=== PATIENT | female | born 1970 | race Caucasian/White ===

== ENCOUNTER 2020-11-24 09:12 | Emergency (ER) | payer OTHER, SELFPAY ==
[2020-11-24 09:23] VITALS: BP 137/74; PULSE 86; RESP 16; TEMP 36.7; O2SAT 96
--- NOTE | 2020-11-24 09:37 | ED.URI ---
HPI - URI/Sore Throat General Chief Complaint: Upper Respiratory Infection Stated Complaint: COUGH/SORE THROAT Time Seen by Provider: 11/24/20 09:51 Source: patient Mode of arrival: ambulatory Limitations: no limitations History of Present Illness HPI Narrative: Hortensia Cavanaugh is a 50 yo female with HTN, hypothyroid, high cholesterol, [facility] with complaints of upper respiratory symptoms that started yesterday. She feels like she is losing her voice and has a lot of sinus congestion no fever but just feels generally tired and rundown. Denies any shortness of breath Patient is in AA and quit drinking 4 years ago and quit smoking 4 years ago, has not developed any COPD Related Data Home Medications Medication Instructions Recorded Confirmed ergocalciferol (vitamin D2) 11/24/20 levothyroxine 11/24/20 lisinopril 11/24/20 meloxicam 11/24/20 tramadol mg 11/24/20 Allergies Allergy/AdvReac Type Severity Reaction Status Date / Time No Known Allergies Allergy Unverified 08/12/18 08:05 Review of Systems Review of Systems: Narrative: CONSTITUTIONAL: Denies fever, chills, sweats. EYES: Denies visual changes, redness, discharge. ENT:has rhinorrhea, has congestion, has sore throat, otalgia. CARDIOVASCULAR: Denies chest pain, palpitations, edema. RESPIRATORY: Denies dyspnea, wheezing, dry cough GASTROINTESTINAL: Denies abdominal pain, nausea, vomiting, diarrhea. GENITOURINARY: Denies dysuria, hematuria, abnormal discharge SKIN: Denies rash or itching. NEUROLOGIC: Denies numbness, or focal weakness. PSYCHIATRIC: Denies anxiety or depression. [facility] Past Medical History Medical History High cholesterol HTN (hypertension) Hypothyroid Family History Family History Other Diabetes mellitus Heart disease Hypertension Social History Social History Smoking packs per day: 1 Smoking cigarettes per day: 20.0 Smoking status: Former smoker Alcohol intake: former Alcohol use details: Stop drinking 4 years ago Comments At time of signature, I agree with nursing past medical, surgical, social and family history. There is no relevant family history pertinent to the presenting complaint. Exam Narrative: Exam Narrative: GENERAL: This is a well-nourished, well-developed patient, in mild distress. HEAD: normocephalic, atraumatic. EYES: Sclera clear/white. Vision is grossly intact. EARS: External ears normal, auditory canals cerythema and without drainage, TMs normal without perforation. Hearing grossly intact. NOSE: External nose normal without nasal discharge, nares with redness, mild rhinorrhea. THROAT: Mucous membranes moist, posterior pharynx erythema, no exudate NECK: Neck supple, non-tender CARDIOVASCULAR: Regular rate and rhythm without murmurs, gallops, or rubs. RESPIRATORY: Clear to auscultation. Breath sounds equal bilaterally. No wheezes, rales, or rhonchi. GASTROINTESTINAL: Abdomen soft, non-tender, SKIN: warm, intact with no suspicious lesions or rash, good texture and turgor. NEURO: awake, alert, and oriented to person, place and time. There were no obvious focal neurologic abnormalities. Steady gait EXTREMITIES: Normal range of motion. BACK: Nontender without deformity Course Course Emergency Course: Hortensia Edmondson is a 50-year-old patient with upper respiratory symptoms that started yesterday including a sore throat hoarseness congestion cough Strep test negative Covid test negative (she did finish Covid series) Flu test negative Started on prednisone, Robitussin, albuterol inhaler, Zyrtec Work excuse for 2 days Vital Signs Vital signs: Vital Signs Temperature 98.1 F 11/24/20 09:23 Pulse Rate 86 11/24/20 09:23 Respiratory Rate 16 11/24/20 09:23 Blood Pressure 137/74 11/24/20 09:23 Pu
--- NOTE | 2020-11-24 10:16 | PC.NURSE ---
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
== END 2020-11-24 10:36 | disposition home or self-care (01) ==
PROVIDERS: Emergency Provider Nurse Practitioner
DX: J06.9 Acute upper respiratory infection, unspecified (principal); Z20.822 Contact with and (suspected) exposure to COVID-19; I10 Essential (primary) hypertension; E03.9 Hypothyroidism, unspecified; E78.00 Pure hypercholesterolemia, unspecified; Z87.891 Personal history of nicotine dependence
CPT/HCPCS: 87426; 87804; 87880; 99213; C9803; G0463

== ENCOUNTER 2021-01-10 14:20 | Outpatient (CLI) | payer OTHER, SELFPAY ==
--- NOTE | ~2021-01-10 | MM_ITS ---
EXAMINATION: MM screening [facility] BI w derek HISTORY: Screening mammogram TECHNIQUE: Craniocaudal and mediolateral oblique 3-D tomosynthesis images were obtained and synthetic 2-D images were generated. CAD analysis was submitted and interpreted. COMPARISON: 05/19/2019, 03/25/2018, 03/01/2017 BREAST PARENCHYMAL COMPOSITION: The breasts are almost entirely fatty. FINDINGS: There is no evidence of suspicious mass, calcification, or architectural distortion to sugg est malignancy in either breast. There has been no suspicious interval change. IMPRESSION: 1. No mammographic evidence of malignancy. 2. Recommend routine screening mammography in one year. BI-RADS Category 1: Negative Reviewed, dictated and finalized at location A.
== END 2021-01-10 14:21 | disposition home or self-care (01) ==
LOC: ANHIMG 14:24
PROVIDERS: PCP Family Medicine; Visit Provider Family Medicine
DX: Z12.31 Encounter for screening mammogram for malignant neoplasm of breast (principal)
CPT/HCPCS: 77063; 77067

== ENCOUNTER 2021-04-20 12:13 | Emergency (ER) | payer OTHER, SELFPAY ==
[2021-04-20 12:23] VITALS: BP 138/76; PULSE 88; RESP 16; TEMP 37.1; O2SAT 97
--- NOTE | 2021-04-20 12:23 | ED.URI ---
HPI - URI/Sore Throat General Chief Complaint: Upper Respiratory Infection Stated Complaint: Congestion,Cough Time Seen by Provider: 04/20/21 12:38 Source: patient and RN notes reviewed Mode of arrival: ambulatory Limitations: no limitations History of Present Illness HPI Narrative: 50-year-old female with history of high cholesterol and hypertension presents with concern for rhinorrhea, nasal congestion, occasional cough, occasional sore throat. Reports symptoms started Friday. Reports she is taking Benadryl with little relief. She denies body aches, chills, sweats, fever. Reports she has been vaccinated for Covid. Denies known sick contacts. MD elicited complaint: nasal congestion Related Data Home Medications Medication Instructions Recorded Confirmed ergocalciferol (vitamin D2) 1,250 mcg PO DAILY 11/24/20 04/20/21 levothyroxine 50 mcg PO DAILY 11/24/20 04/20/21 lisinopril 40 mg PO DAILY 11/24/20 04/20/21 meloxicam 15 mg PO DAILY 11/24/20 04/20/21 tramadol 50 mg PO DIRECTED 11/24/20 04/20/21 Allergies Allergy/AdvReac Type Severity Reaction Status Date / Time No Known Allergies Allergy Unverified 04/20/21 12:25 Review of Systems Review of Systems: CONSTITUTIONAL: Denies malaise, chills, sweats, or fever. EYES: Denies visual changes, redness, or discharge. ENT: Reports rhinorrhea, congestion, intermittent sore throat. Denies sinus pain, otalgia CARDIOVASCULAR: Denies chest pain, palpitations, or edema. RESPIRATORY: Reports occasional cough. Denies dyspnea. GASTROINTESTINAL: Denies abdominal pain, nausea, vomiting, diarrhea SKIN: Denies rash or itching. MUSCULOSKELETAL: Denies myalgia. NEUROLOGIC: Denies headache. All systems reviewed & are unremarkable except as noted in HPI and below PMFSH Past Medical History Medical History High cholesterol HTN (hypertension) Hypothyroid Family History Family History Other Diabetes mellitus Heart disease Hypertension Social History Social History Smoking packs per day: 1 Smoking cigarettes per day: 20.0 Smoking status: Former smoker Alcohol intake: former Alcohol use details: Stop drinking 4 years ago Comments At time of signature, agree with nursing past medical, surgical, social and family history. There is no relevant family history pertinent to the presenting complaint Exam Narrative: GENERAL: Well-appearing, well-nourished, and in no acute distress. HEAD: Normocephalic EYES: PERRLA, conjunctivae clear ENT: Nares clear, turbinates erythematous, clear discharge. Mucous membranes moist. TM pearly rosas with dull light reflex bilaterally; no tragal tenderness. Oropharynx not erythematous without lesions. Tonsils not enlarged and without exudate, no drooling, no hoarseness, no trismus, uvula midline. NECK: Supple. No lymphadenopathy CHEST: Clear to auscultation, breath sounds equal. No wheezing, rhonchi, rales, or stridor. No respiratory distress, speaks in full sentences. HEART: Regular rate and rhythm. No murmur heard. SKIN: Warm, dry, no rash. NEURO: Alert and oriented x3. PSYCH: Normal mood and affect Course Course Emergency Course: Patient is aware of diagnosis, understands and agrees to treatment plan. Anticipatory guidance given. Patient agrees to follow-up as directed and is aware of reasons to seek care at the emergency department. Portions of this record may have been created with voice recognition software Vital Signs Vital signs: Reviewed. MDM - URI/Sore Throat MDM Narrative Medical decision making narrative: Differential diagnosis considered: Clarke virus, strep pharyngitis, allergic rhinitis, upper respiratory tract infection, sinusitis, rhinosinusitis, nasopharyngitis. viral pharyngitis, otitis media, otitis externa, pneumonia, bronchitis, viral cough syndrome
== END 2021-04-20 12:51 | disposition home or self-care (01) ==
PROVIDERS: Emergency Provider Nurse Practitioner; PCP Family Medicine
DX: J06.9 Acute upper respiratory infection, unspecified (principal); Z87.891 Personal history of nicotine dependence; E78.00 Pure hypercholesterolemia, unspecified; I10 Essential (primary) hypertension; E03.9 Hypothyroidism, unspecified
CPT/HCPCS: 99213; G0463

== ENCOUNTER 2021-11-10 08:10 | Emergency (ER) | payer OTHER, SELFPAY ==
[2021-11-10 08:21] VITALS: BP 141/91; PULSE 77; RESP 18; TEMP 36.4; O2SAT 100
--- NOTE | 2021-11-10 08:26 | ED.URI ---
HPI - URI/Sore Throat General Chief Complaint: Upper Respiratory Infection Stated Complaint: Sore Throat Time Seen by Provider: 11/10/21 08:26 Source: patient Mode of arrival: ambulatory Limitations: no limitations History of Present Illness HPI Narrative: 51-year-old female presents with complaint of nasal congestion, postnasal drainage, sore throat, dry hacking cough for 3 days. Denies chest pain shortness of breath. No fever chills. States that she has been working outside in the yard. Thought that it was may be allergies but seems like drainage and cough is getting worse. Now having hoarse voice. Did start Claritin yesterday but not taking any other medications to treat symptoms. All systems reviewed and negative except as noted above. Related Data Home Medications Medication Instructions Recorded Confirmed ergocalciferol (vitamin D2) 1,250 mcg PO DAILY 11/24/20 11/10/21 levothyroxine 50 mcg PO DAILY 11/24/20 11/10/21 lisinopril 40 mg PO DAILY 11/24/20 11/10/21 Allergies Allergy/AdvReac Type Severity Reaction Status Date / Time No Known Allergies Allergy Unverified 04/20/21 12:25 Review of Systems Review of Systems: CONSTITUTIONAL: Denies fever, chills, or sweats. EYES: Denies visual changes, redness, or discharge. ENT: Reports rhinorrhea, congestion, sore throat. Denies otalgia. CARDIOVASCULAR: Denies chest pain, palpitations, or edema. RESPIRATORY: Reports cough. Denies dyspnea. GASTROINTESTINAL: Denies abdominal pain, nausea, vomiting, or diarrhea. GENITOURINARY: Denies dysuria or hematuria. SKIN: Denies rash or itching. MUSCULOSKELETAL: Denies back pain, joint pain, or myalgia. NEUROLOGIC: Denies headache, numbness, or weakness. PSYCHIATRIC: Denies anxiety or depression. All other systems reviewed are negative, except as documented in HPI. [facility] Past Medical History Medical History High cholesterol HTN (hypertension) Hypothyroid Family History Family History Other Diabetes mellitus Heart disease Hypertension Social History Social History Smoking packs per day: 1 Smoking cigarettes per day: 20.0 Smoking status: Former smoker Alcohol intake: former Alcohol use details: Stop drinking 4 years ago Comments At time of signature, agree with nursing past medical, surgical, social and family history. There is no relevant family history pertinent to the presenting complaint. Exam Narrative: GENERAL: This is a well-nourished, well-developed patient, in no apparent distress. HEAD: normocephalic, atraumatic. EYES: PERRL. Sclera clear/white. Vision is grossly intact. EARS: External ears normal, auditory canals clear and without drainage, TMs normal without perforation. Hearing grossly intact. NOSE: External nose normal with clear nasal drainage, erythema to nares. THROAT: Mucous membranes moist, mild erythema to posterior pharynx with clear nasal drainage. NECK: Neck supple, non-tender without lymphadenopathy, masses or thyromegaly. CARDIOVASCULAR: Regular rate and rhythm without murmurs, gallops, or rubs. RESPIRATORY: Clear to auscultation. Breath sounds equal bilaterally. No wheezes, rales, or rhonchi. SKIN: warm, Dry, intact with no suspicious lesions or rash, good texture and turgor. NEURO: awake, alert, and oriented to person, place and time. There were no obvious focal neurologic abnormalities. EXTREMITIES: Normal range of motion to all extremities. Course Course Level of Care: Express Care Visit Vital Signs Vital signs: Vital Signs Temperature 36.4 C 11/10/21 08:21 Pulse Rate 77 11/10/21 08:21 Respiratory Rate 18 11/10/21 08:21 Blood Pressure 141/91 H 11/10/21 08:21 Pulse Oximetry 100 11/10/21 08:21 Temperature 36.4 C 11/10/21 08:21 Pulse Rate 77 11/10/21 08:21 Respiratory Rate
== END 2021-11-10 08:51 | disposition home or self-care (01) ==
PROVIDERS: Emergency Provider Nurse Practitioner Family
DX: J01.90 Acute sinusitis, unspecified (principal); E78.00 Pure hypercholesterolemia, unspecified; I10 Essential (primary) hypertension; E03.9 Hypothyroidism, unspecified; Z87.891 Personal history of nicotine dependence
CPT/HCPCS: 87081; 87880; 99213; G0463

== ENCOUNTER 2022-09-24 09:00 | Emergency (ER) | payer OTHER, SELFPAY ==
[2022-09-24 09:09] VITALS: BP 136/71; PULSE 93; RESP 16; TEMP 36.3; O2SAT 100
--- NOTE | 2022-09-24 09:54 | ED.GENADULT ---
HPI - General Adult General Chief complaint: Upper Respiratory Infection Stated complaint: Throat/Nose/Ears Source: patient Mode of arrival: ambulatory Limitations: no limitations History of Present Illness HPI narrative: Patient presents for evaluation of sick symptoms for the last 24 hours. Symptoms include sinus congestion, clear rhinorrhea, sore throat. No fever, chills, nausea, vomiting, diarrhea, cough, shortness of breath. Her daughter had a sore throat recently. She smokes 1/2 ppd. She has taken zyrtec for her symptoms. No additional complaints or concerns. Related Data Home Medications Medication Instructions Recorded Confirmed ergocalciferol (vitamin D2) 1,250 1,250 mcg PO DAILY 11/24/20 09/24/22 mcg (50,000 unit) capsule levothyroxine 50 mcg tablet 50 mcg PO DAILY 11/24/20 09/24/22 lisinopril 40 mg tablet 40 mg PO DAILY 11/24/20 09/24/22 multivitamin 1 tablet PO DAILY 09/24/22 09/24/22 Allergies Allergy/AdvReac Type Severity Reaction Status Date / Time No Known Allergies Allergy Verified 09/24/22 09:21 Review of Systems Review of Systems: CONSTITUTIONAL: Reports fever and chills. EYES: Denies visual changes, redness, or discharge. ENT: Reports sinus congestion, clear rhinorrhea, sore throat. Denies otalgia. CARDIOVASCULAR: Denies chest pain, palpitations, or edema. RESPIRATORY: Denies cough or dyspnea. GASTROINTESTINAL: Denies abdominal pain, nausea, vomiting, or diarrhea. GENITOURINARY: Denies dysuria or hematuria. SKIN: Denies rash or itching. MUSCULOSKELETAL: Denies back pain, joint pain, or myalgia. NEUROLOGIC: Denies headache, numbness, dizziness, or weakness. PSYCHIATRIC: Denies anxiety or depression. [facility] Past Medical History Medical History High cholesterol HTN (hypertension) Hypothyroid Surgical History Surgical History History of Family History Family History Mother Family history non-contributory Other Diabetes mellitus Heart disease Hypertension Social History Social History Smoking packs per day: 0.5 Smoking cigarettes per day: 10.0 Smoking status: Current every day smoker Alcohol intake: former Alcohol use details: Stop drinking 4 years ago Substance use: never Living arrangements: with family Spiritual care concerns: No Exam Narrative: GENERAL: Well-appearing, well-nourished, and in no acute distress. HEAD: Normocephalic, atraumatic. EYES: PERRLA and EOMI. ENT: Nares clear, no rhinorrhea or epistaxis. Mucous membranes moist. Posterior pharyngeal erythema without exudate. Uvula is midline. Bilateral TMs pearly rosas nonbulging NECK: Supple. No adenopathy or masses. No carotid bruits or JVD CHEST: Clear to auscultation. No respiratory distress. No wheezes rales or rhonchi HEART: Regular rate and rhythm. No murmur heard. Normal peripheral pulses. ABDOMEN: Soft, nontender, nondistended, normal active bowel sounds. EXTREMITIES: Normal range of motion. No edema. SKIN: Warm, dry, no rash. NEURO: No focal deficits. Alert and oriented x3. PSYCH: Normal mood and affect. Course Course Emergency Course: This is a 52-year-old female who presented for evaluation of sick symptoms. Rapid strep positive. Will treat with amoxicillin. Follow up with primary provider. Go to the ER for worsening symptoms. Patient in agreement with plan of care. Level of Care: Express Care Visit Vital Signs Vital signs: Vital Signs Temperature 36.3 C L 09/24/22 09:09 Pulse Rate 93 09/24/22 09:09 Respiratory Rate 16 09/24/22 09:09 Blood Pressure 136/71 09/24/22 09:09 Pulse Oximetry 100 09/24/22 09:09 Oxygen Delivery Room Air 09/24/22 09:09 Temperature 36.3 C L 09/24/22 09:09 Puls
== END 2022-09-24 10:22 | disposition home or self-care (01) ==
PROVIDERS: Emergency Provider Nurse Practitioner; PCP Physician Assistant
DX: J02.0 Streptococcal pharyngitis (principal); I10 Essential (primary) hypertension; E03.9 Hypothyroidism, unspecified; F17.210 Nicotine dependence, cigarettes, uncomplicated
CPT/HCPCS: 87880; 99213; G0463

== ENCOUNTER 2023-01-12 08:00 | Emergency (ER) | payer OTHER, SELFPAY ==
--- NOTE | 2023-01-12 08:04 | ED.URI ---
HPI - URI/Sore Throat General Chief Complaint: Upper Respiratory Infection Stated Complaint: ear, nose,throat prob Time Seen by Provider: 01/12/23 08:08 Source: patient, RN notes reviewed and old records reviewed Mode of arrival: ambulatory Limitations: no limitations History of Present Illness HPI Narrative: 52-year-old female presents to the [facility] with complaints of a sore throat, ear pressure and stuffy nose that started either yesterday morning or late Friday night. Has taken DayQuil 1 time Denies fevers, chest pain, shortness of breath. Denies abdominal pain. States that she just got back from [place] [facility] the [facility] and started symptoms. History of type 2 diabetes, high cholesterol, thyroid disease and hypertension Onset (ago): day(s) (1) Severity: mild Related Data Home Medications Medication Instructions Recorded Confirmed ergocalciferol (vitamin D2) 1,250 1,250 mcg PO DAILY 11/24/20 01/12/23 mcg (50,000 unit) capsule levothyroxine 50 mcg tablet 50 mcg PO DAILY 11/24/20 01/12/23 lisinopril 40 mg tablet 40 mg PO DAILY 11/24/20 01/12/23 multivitamin 1 tablet PO DAILY 09/24/22 01/12/23 atorvastatin 20 mg tablet 20 mg PO HS 01/12/23 01/12/23 empagliflozin 25 mg tablet 25 mg PO DAILY 01/12/23 01/12/23 (Jardiance) Allergies Allergy/AdvReac Type Severity Reaction Status Date / Time No Known Allergies Allergy Verified 01/12/23 08:10 Review of Systems Review of Systems: All systems reviewed & are unremarkable except as noted in HPI and below Constitutional: Constitutional: Reports no additional constitutional complaints Eyes: Eyes: Reports no additional eye complaints ENT: Reports as per HPI, Reports otalgia, Reports sinus pressure and Reports sore throat Cardiovascular: Cardiovascular: Reports no additional cardiovascular complaints, Denies chest pain and Denies dyspnea Respiratory: Respiratory: Reports no additional respiratory complaints, Denies chest congestion, Denies cough and Denies dyspnea Gastrointestinal: Gastrointestinal: Reports no additional gastrointestinal complaints, Denies abdominal pain, Denies nausea and Denies vomiting Musculoskeletal: Musculoskeletal: Reports no additional musculoskeletal complaints Integumentary/Breasts: Skin/Breast: Reports system reviewed and no additional complaints, except as docu Neurologic: Reports system reviewed and no additional complaints, except as documented Psychiatric: Psychiatric: Reports no additional psychiatric complaints Allergic/Immunologic: Allergic/Immunologic: Reports no additional allergic/immunologic complaints PMF Past Medical History Medical History High cholesterol HTN (hypertension) Hypothyroid Surgical History Surgical History History of Family History Family History Mother Family history non-contributory Other Diabetes mellitus Heart disease Hypertension Social History Social History Smoking packs per day: 0.5 Smoking cigarettes per day: 10.0 Smoking status: Current every day smoker Alcohol intake: former Alcohol use details: Stop drinking 4 years ago Substance use: never Living arrangements: with family Spiritual care concerns: No Comments At the time of my signature, I reviewed and agree with the nursing past medical, surgical, social, and family history. There is no relevant family history pertinent to the patient complaint. Exam Const: General: cooperative, healthy appearing, comfortable, no acute distress, well developed, alert and well nourished Nutritional Appearance: well nourished and obese Orientation/consciousness: patient oriented x3 Limitations: no limitations HENMT: Head: normal to inspection Ears: hearing grossly normal bilaterally, external
[2023-01-12 08:10] VITALS: BP 142/71; PULSE 79; RESP 16; TEMP 36.4; O2SAT 98
[2023-01-12 08:12] VITALS: BP 142/71; PULSE 79; RESP 16; TEMP 36.4; O2SAT 98
== END 2023-01-12 08:33 | disposition home or self-care (01) ==
PROVIDERS: Emergency Provider Nurse Practitioner; PCP Physician Assistant
DX: J00 Acute nasopharyngitis [common cold] (principal); F17.210 Nicotine dependence, cigarettes, uncomplicated; E78.00 Pure hypercholesterolemia, unspecified; I10 Essential (primary) hypertension; E03.9 Hypothyroidism, unspecified
CPT/HCPCS: 87081; 87880; 99213; G0463

== ENCOUNTER 2023-06-16 08:57 | Outpatient (CLI) | payer OTHER, SELFPAY ==
--- NOTE | ~2023-06-16 | MM_ITS ---
EXAMINATION: MM screening [facility] BI w derek HISTORY: Screening mammogram TECHNIQUE: Craniocaudal and mediolateral oblique 3-D tomosynthesis images were obtained and synthetic 2-D images were generated. CAD analysis was submitted and interpreted. COMPARISON: 01/10/2021, 05/19/2019 bilateral screening mammogram examinations BREAST PARENCHYMAL COMPOSITION: The breasts are almost entirely fatty. FINDINGS: There is no evidence of suspicious mass, calcification, or architectural distortion to sugg est malignancy in either breast. There has been no suspicious interval change. IMPRESSION: 1. No mammographic evidence of malignancy. 2. Recommend routine screening mammography in one year. BI-RADS Category 1: Negative Reviewed, dictated and finalized at location A. [facility]
== END 2023-06-16 08:58 | disposition home or self-care (01) ==
LOC: ANHIMG 08:59
PROVIDERS: PCP Physician Assistant; Visit Provider Physician Assistant
DX: Z12.31 Encounter for screening mammogram for malignant neoplasm of breast (principal)
CPT/HCPCS: 77063; 77067

== ENCOUNTER 2024-11-22 09:13 | Emergency (ER) | payer OTHER, SELFPAY ==
[2024-11-22 09:33] VITALS: BP 112/69; PULSE 86; RESP 20; TEMP 36.2; O2SAT 98
--- NOTE | 2024-11-22 09:49 | ED.EXTPRO ---
HPI - Extremity Problem General Chief complaint: Extremity Problem,Nontraumatic Stated complaint: left thigh swollen Time Seen by Provider: 11/22/24 09:50 Source: patient and RN notes reviewed Mode of arrival: ambulatory Limitations: no limitations History of Present Illness HPI Narrative: 54-year-old female presents concern for left thigh pain. Reports 3 days ago she noticed it was sore and was slightly swollen. She denies any injury. She denies redness, warmth. She reports she took ibuprofen with mild relief. Reports she put topical pain medication with some relief. She denies any history of DVT. She denies any swelling in the knee or lower leg. She denies any trouble breathing. MD Complaint: extremity pain Related Data Home Medications ?Medication ?Instructions ?Recorded ?Confirmed ?Last Taken ?Type ergocalciferol (vitamin D2) 1,250 1,250 mcg PO DAILY 11/24/20 01/12/23 Unknown History mcg (50,000 unit) capsule levothyroxine 50 mcg tablet 50 mcg PO DAILY 11/24/20 01/12/23 Unknown History lisinopril 40 mg tablet 40 mg PO DAILY 11/24/20 01/12/23 Unknown History multivitamin 1 tablet PO DAILY 09/24/22 01/12/23 Unknown History atorvastatin 20 mg tablet 20 mg PO HS 01/12/23 01/12/23 Unknown History empagliflozin 25 mg tablet 25 mg PO DAILY 01/12/23 01/12/23 Unknown History (Jardiance) Allergies Allergy/AdvReac Type Severity Reaction Status Date / Time No Known Allergies Allergy Verified 11/22/24 09:40 Review of Systems Review of Systems: CONSTITUTIONAL: Denies malaise, chills, sweats, or fever. CARDIOVASCULAR: Denies chest pain, palpitations, or edema. RESPIRATORY: Denies cough or dyspnea. SKIN: Denies rash or itching, bruising, redness MUSCULOSKELETAL: Reports left thigh discomfort and swelling NEUROLOGIC: Denies numbness, weakness All systems reviewed & are unremarkable except as noted in HPI and below PMFSH Past Medical History Medical History High cholesterol HTN (hypertension) Hypothyroid Surgical History Surgical History History of Family History Family History Mother Family history non-contributory Other Diabetes mellitus Heart disease Hypertension Social History Social History Smoking packs per day: 0.5 Smoking cigarettes per day: 10.0 Smoking status: Current every day smoker Alcohol intake: former Alcohol use details: Stop drinking 4 years ago Substance use: never Living arrangements: with family Spiritual care concerns: No Comments At time of signature, agree with nursing past medical, surgical, social and family history. There is no relevant family history pertinent to the presenting complaint Exam Narrative: GENERAL: Well-appearing, well-nourished, and in no acute distress. HEAD: Normocephalic, atraumatic. EYES: PERRLA, conjunctivae clear NECK: Supple. CHEST: Speaks in full sentences. No respiratory distress. HEART: Regular rate and rhythm. Normal and equal peripheral pulses. EXTREMITIES: Left lower extremity has normal strength and sensation, normal range of motion. No edema, erythema, induration or ecchymosis noted. Normal sensation with sensitivity to light touch and pain. General upper leg tenderness. No open wounds, no skin tenting, no devitalized tissue or atrophy, no trophic changes, no obvious deformity, alignment normal, nearby joints and structures intact. Distal pulses palpable and equal bilaterally, skin warm, dry, pink. Capillary refill less than 3 seconds. SKIN: Warm, dry, no rash. NEURO: Alert and oriented x3. PSYCH: Normal mood and affect Course Course Emergency Course: Patient is aware of diagnosis, understands and agrees to treatment plan. Anticipatory guidance given. Patient agrees to follow-up as directed and is aware of reasons to seek care at the emergency department. Portions of this record may have been created with voice recognition software Level of Care: Express Care Visit Vital Signs Vital signs: Vital Signs Temperature 97.2 F L 11/22/24 09:33 Pulse Rate 86 11/22/24 09:33 Respiratory Rate 20 11/22/24 09:33 Blood Pressure 112/69 11/22/24 09:33 Pulse Oximetry 98 11/22/24 09:33 Oxygen Delivery Room Air 11/22/24 09:33 Temperature 97.2 F L 11/22/24 09:33 Pulse Rate 86 11/22/24 09:33 Respiratory Rate 20 11/22/24 09:33 Blood Pressure 112/69 11/22/24 09:33 Pulse Oximetry 98 11/22/24 09:33 Oxygen Delivery Room Air 11/22/24 09:33 Reviewed. MDM - Extremity (Nontraumatic) MDM Narrative Medical decision making narrative: [facility]. History is obtained from patient who is an independent historian and physical exam was performed.? Available medical records were reviewed. ? Exam findings show no acute concerns or changes; patient is non-toxic appearing and is in no distress. ? Differential diagnosis and treatment plan were discussed with the patient. Patient agrees with discussion and after shared medical decision making agrees with plan of care. All questions were answered to the patient's satisfaction. Patient is appropriate for outpatient treatment and follow-up. Differential Diagnosis Differential diagnosis: Likely gout, cellulitis, superficial thrombophlebitis and deep vein thrombosis of lower extremity Critical Care Time Critical Care Time Critical Care Time: No Discharge Plan Discharge Clinical Impression: Left thigh pain Patient Disposition: Home Condition: Stable Instructions: General Patient Instructions Additional Instructions: Avoid activities that cause pain until the pain subsides. Ice to the area 20-30 minutes 4-6 times a day Tylenol for lesser pain Ibuprofen regularly for the next 2-3 days for the inflammation Follow up with your primary care provider for further evaluation next 1-2 days If the condition worsens with worsening swelling, numbness, tingling, decrease sensation with weakness seek treatment in the emergency room immediately. Patient Language: [place] Prescriptions: New ibuprofen 800 mg tablet 800 mg PO Q6H PRN (Reason: pain) Qty: 30 0RF No Action levothyroxine 50 mcg tablet 50 mcg PO DAILY ergocalciferol (vitamin D2) 1,250 mcg (50,000 unit) capsule 1,250 mcg PO DAILY lisinopril 40 mg tablet 40 mg PO DAILY multivitamin [Daily Multivitamin] Tablet 1 tablet PO DAILY atorvastatin 20 mg tablet 20 mg PO HS Jardiance 25 mg tablet 25 mg PO DAILY Follow-up/Referrals: Angel,LANDRY Robison [Primary Care Provider] - 2 Days (Left thigh pain/swelling) Stand Alone Forms: Work/School Release IP Time of Disposition: 10:00
== END 2024-11-22 10:05 | disposition home or self-care (01) ==
PROVIDERS: Emergency Provider Nurse Practitioner; PCP Physician Assistant
DX: M79.652 Pain in left thigh (principal); F17.210 Nicotine dependence, cigarettes, uncomplicated; I10 Essential (primary) hypertension; E78.00 Pure hypercholesterolemia, unspecified; E03.9 Hypothyroidism, unspecified
CPT/HCPCS: 99213; G0463